=== PATIENT | female | born 1980 | race Caucasian/White ===

== ENCOUNTER 2023-04-09 13:21 | Emergency (ER) | payer BC, MEDICAID, SELFPAY ==
[2023-04-09 13:36] VITALS: BP 142/80; PULSE 72; RESP 16; TEMP 36.8; O2SAT 99; BMI 26.1
[2023-04-09 13:52] VITALS: BP 143/59; PULSE 66; RESP 25; O2SAT 98
--- NOTE | 2023-04-09 13:52 | CTR_ITS ---
PROCEDURE INFORMATION: Exam: CT Abdomen And Pelvis With Contrast Exam date and time: 04/09/2023 2:23 PM Age: 43 years old Clinical indication: Abdominal pain; Localized; Right lower quadrant (rlq); Prior surgery; Surgery date: 6+ months; Surgery type: Gb, c sect x 3; Additional info: Periumbilical and rlq pain TECHNIQUE: Imaging protocol: Computed tomography of the abdomen and pelvis with contrast. Axial, coronal and sagittal reformatted images were created and reviewed. Radiation optimization: All CT scans at this facility use at least one of these dose optimization techniques: automated exposure control; mA and/or kV adjustment per patient size (includes targeted exams where dose is matched to clinical indication); or iterative reconstruction. Contrast material: OMNI 350; Contrast volume: 100 ml; Contrast route: INTRAVENOUS (IV); REPORTING DATA: Count of CT and Cardiac NM exams in prior 12 months: This patient has received 0 known CTs and 0 known cardiac nuclear medicine studies in the 12 months prior to the current study. COMPARISON: No relevant prior studies available. RADIATION DOSE METRICS: Total DLP (mGy-cm): 554.1 FINDINGS: Liver: Unremarkable. Gallbladder and bile ducts: Status post cholecystectomy. No biliary ductal dilatation. Pancreas: Unremarkable. Spleen: Unremarkable. Adrenal glands: 2.2 cm right adrenal myelolipoma. 3 mm low-density right renal lesion, too small to characterize. No radiodense calculi. No hydronephrosis. Kidneys and ureters: See Adrenal glands finding. Stomach and bowel: No bowel wall thickening. No obstruction. No pneumatosis. Appendix: Normal. Intraperitoneal space: No free fluid. No organized fluid collection. No free air. Vasculature: Unremarkable. No aneurysm. Lymph nodes: No pathologically enlarged lymph nodes. Urinary bladder: Unremarkable as visualized. Reproductive: Probable involuting right ovarian corpus luteal cyst. Bones/joints: No acute osseous abnormality. Osteopenia. Mild degenerative changes. Soft tissues: Tiny, fat containing umbilical hernia. CT/CT abdomen pelvis w con* [id number]: 1[address] No CT evidence of acute intra-abdominal or pelvic pathology. 2. Additional findings, as above. COMMENTS: Consistent with the [employer]'s Incidental Findings Committee white paper (J Am Anali Radiol 2018): Any incidental renal lesion less than 1 cm or classified as too small to characterize, or any incidental cystic renal lesion characterized as simple-appearing, is likely benign. No follow-up imaging is recommended for these lesions per consensus recommendations based on imaging criteria.
--- NOTE | 2023-04-09 13:53 | W.ED.ABDPA2 ---
Documented by User: Olivia Guzman PA-C 04/09/23 15:25 HPI - Abdominal Pain General: Chief Complaint: Abdominal Pain Stated Complaint: abd pain Time Seen by Provider: 04/09/23 13:41 Source: patient Mode of arrival: ambulatory Limitations: no limitations History of Present Illness: 43-year-old female presents the ER today for 4 days of abdominal pain and nausea. Patient reports when this began on this was periumbilical and shooting into the right upper quadrant. Patient reports it has continued to be around the umbilicus but now is radiating to the right lower quadrant. Patient reports nausea without vomiting. She reports decreased appetite. Patient reports normal bowel movements with no constipation or diarrhea. Patient reports normal urinary habits with no pain or increased frequency. Patient reports no blood in her stools or in urine. Patient denies any recent illness. Denies any recent sick contacts. Patient reports a history of a cholecystectomy. Patient still has her appendix and uterus. Denies any vaginal issues such as abnormal bleeding or discharge. Review of Systems General: Reports: 10 or more systems reviewed and unremarkable except in HPI and below Physical Exam Const: COMMON NORMALS: average body habitus, patient oriented x3, no limitations, healthy appearing, alert and well nourished; apparent distress (slightly uncomfortable) HENMT: COMMON NORMALS: normocephalic, atraumatic, external ears normal, Normal nasal mucous membranes and turbinates present and moist oral mucous membranes HEAD & SCALP: normocephalic and atraumatic NOSE: Normal nasal mucous membranes and turbinates present EXTERNAL EAR: Yes external ears normal Neck/C-Spine: COMMON NORMALS: full ROM and no lymphadenopathy Resp: COMMON NORMALS: normal respiratory effort, No retractions and clear to auscultation bilaterally AUSCULTATION: clear to auscultation bilaterally Cardio: COMMON NORMALS: regular rate, regular rhythm and No murmurs present (Cardio) RATE: regular rate RHYTHM: regular rhythm GI: COMMON NORMALS: Soft to palpation and No hepatosplenomegaly present INSPECTION: Yes normal to inspection AUSCULTATION: Yes normoactive bowel sounds PALPATION: Yes Soft to palpation, Yes Tenderness to palpation present (GI) (Periumbilical and right lower quadrant), Yes Guarding due to palpation present (GI), Yes No hepatosplenomegaly present, No Palpable mass present and No Rebound tenderness present : COMMON NORMALS: Yes no CVA tenderness BLADDER/KIDNEY EXAM: Yes no CVA tenderness Back/Pelvis: COMMON NORMALS: no CVA tenderness Extremity: COMMON NORMALS: normal to inspection, full ROM and no pedal edema Neuro: COMMON NORMALS: patient oriented x3 SENSORIUM/ORIENTATION: Yes alert Psych: COMMON NORMALS: mental status grossly normal, Normal thought process present and cooperative THOUGHT PROCESS: Normal thought process present Skin: COMMON NORMALS: no rashes or lesions noted and no wounds GENERAL SKIN EXAM: no rashes or lesions noted Course ED course: Patient presents to the ER with 4 days of periumbilical and right lower quadrant abdominal pain. This is intermittent however patient reports constant discomfort. Reports nausea without vomiting. No diarrhea or constipation reported. No recent sick contacts or recent illnesses. Patient has a history of cholecystectomy. We will get lab work, UA, and CT to rule out appendicitis versus other acute abdomen. Patient will be given fluids and Zofran for nausea. Vital Signs: Vital signs: Vital Signs Temperature 98.3 F 04/09/23 15:32 Pulse Rate 65 04/09/23 15:32 Respiratory Rate 21 H 04/09/23 15:32 Blood Pressure 108/60 04/09/23 15:32 Pulse Oximetry 98 04/09/23 15:32 Oxygen Delivery Me thod Room Air 04/09/23 15:24 MDM - Abdominal Pain Medical Decision Making Lab work is mostly unremarkable. UA does indicate probable UTI with blood and leukocytes noted. Patient's symptoms could be related to the UTI. Patient was also noted to have an ovarian cyst on the right side on CT of the abdomen. No acute abdomen is noted on the CT. Discussed findings with patient. We will treat with Cipro for the UTI. Also recommended anti-inflammatories to help with possible pain associated with an ovarian cyst. If pain persist I recommend she follow-up with PCP to discuss treatment plan. Push fluids. Return to the ER with any new or worsening symptoms. Patient verbalized understanding and was in agreement with the treatment plan. Lab Data 04/09/23 14:06 04/09/23 14:06 Labs/Radiology: Radiology Impressions Abdomen/Pelvis CT 04/09/23 13:[address]: 1[address] No [address] evidence of acute intra-abdominal or pelvic pathology. 2. Additional findings, as above. COMMENTS: Consistent with the [employer]'s Incidental Findings Committee white paper (J Am Anali Radiol 2018): Any incidental renal lesion less than 1 cm or classified as too small to characterize, or any incidental cystic renal lesion characterized as simple-appearing, is likely benign. No follow-up imaging is recommended for these lesions per consensus recommendations based on imaging criteria. Laboratory Results WBC 9.4 10^3/uL (4.0-10.0) 04/09/23 14:06 RBC 4.80 10^6/uL (4.1-5.3) 04/09/23 14:06 Hgb 15.2 g/dL (11.5-15.3) 04/09/23 14:06 Hct 46.0 % (37.0-47.0) 04/09/23 14:06 MCV 95.8 fl (81-99) 04/09/23 14:06 MCH 31.7 pg (28.0-34.0) 04/09/23 14:06 MCHC 33.0 g/dL (30.0-36.0) 04/09/23 14:06 RDW 13.0 % (12.1-15.1) 04/09/23 14:06 Plt Count 360 10^3/cmm (130-400) 04/09/23 14:06 MPV 10.2 fL (7.4-10.4) 04/09/23 14:06 Neut % (Auto) 55.4 % 04/09/23 14:06 Lymph % (Auto) 29.7 % 04/09/23 14:06 [place] % (Auto) 11.0 % 04/09/23 14:06 Eos % (Auto) 2.7 % 04/09/23 14:06 Baso % (Auto) 0.8 % 04/09/23 14:06 Neut # (Auto) 5.22 10^3/uL (1.8-7.7) 04/09/23 14:06 Lymph # (Auto) 2.8 10^3/uL (0.8-4.8) 04/09/23 14:06 [place] # (Auto) 1.0 10^3/uL (0.2-0.9) H 04/09/23 14:06 Eos # (Auto) 0.3 10^3/uL (0.0-0.8) 04/09/23 14:06 Baso # (Auto) 0.1 10^3/uL (0.0-0.1) 04/09/23 14:06 Nucleated RBC % (auto) 0 % 04/09/23 14:06 Nucleated RBCs # 0.0 /100WBC 04/09/23 14:06 Sodium 135 mmol/L (136-145) L 04/09/23 14:06 Potassium 4.0 mmol/L (3.5-5.1) 04/09/23 14:06 Chloride 103 mmol/L (98-107) 04/09/23 14:06 Carbon Dioxide 21 mmol/L (22-29) L 04/09/23 14:06 Anion Gap 15.0 (5-19) 04/09/23 14:06 BUN 8 mg/dL (6-20) 04/09/23 14:06 Creatinine 0.7 mg/dL (0.5-0.9) 04/09/23 14:06 GFR Calculation 90.9 mL/min (90-130) 04/09/23 14:06 Glucose 117 mg/dL (65-115) H 04/09/23 14:06 Calculated Osmolality 279 mOsm/kg (285-295) L 04/09/23 14:06 Calcium 9.5 mg/dL (8.5-10.5) 04/09/23 14:06 Total Bilirubin 0.4 mg/dL (0.15-1.2) 04/09/23 14:06 AST 13 U/L (0-32) 04/09/23 14:06 ALT 18 U/L (0-33) 04/09/23 14:06 Alkaline Phosphatase 64 U/L (35-105) 04/09/23 14:06 Total Protein 7.8 g/dL (6.6-8.7) 04/09/23 14:06 Albumin 4.6 g/dL (3.5-5.2) 04/09/23 14:06 Globulin 3.2 g/dL (1.3-4.6) 04/09/23 14:06 Lipase 19 U/L (13-60) 04/09/23 14:06 Urine Color Yellow (Yellow) 04/09/23 14:24 Urine Appearance Clear (CLEAR) 04/09/23 14:24 Urine pH 6 (5-7) 04/09/23 14:24 Ur Specific [place] 1.010 (1.005-1.030) 04/09/23 14:24 Urine Protein Neg (Negative) 04/09/23 14:24 Urine Glucose (UA) Norm (Normal) 04/09/23 14:24 Urine Ketones Negative (Negative) 04/09/23 14:24 Urine Blood 2+ (Negative) H 04/09/23 14:24 Urine Nitrate Negative (Negative) 04/09/23 14:24 Urine Bilirubin Neg (Negative) 04/09/23 14:24 Urine Urobilinogen Norm mg/dL (Negative) 04/09/23 14:24 Ur Leukocyte Esterase 2+ (Negative) H 04/09/23 14:24 Urine RBC 5-10 /hpf (0-2) H 04/09/23 14:24 Urine WBC 10-15 /hpf (0-5) H 04/09/23 14:24 Ur Squamous Epith Cells 10-15 /hpf (0-5) H 04/09/23 14:24 Amorphous Sediment Not Reportable 04/09/23 14:24 Urine Bacteria 1+ /hpf (NONE) H 04/09/23 14:24 Urine Mucus Trace /hpf 04/09/23 14:24 Critical Care Time Critical Care Time: Critical Care Time: No Discharge Plan Discharge Patient Disposition: Home Clinical Impression: Cyst of right ovary UTI (urinary tract infection) Qualifiers: Urinary tract infection type: acute cystitis Hematuria presence: with hematuria Qualified Code(s): N30.01 - Acute cystitis with hematuria Condition: Stable Prescriptions: New Cipro 250 mg tablet 250 mg PO BID 5 Days Qty: 10 0RF No Action glimepiride 4 mg tablet 4 mg PO QPM lisinopril 20 mg tablet 20 mg PO QPM Probiotic 10 billion cell Capsule 10,000 mmu cells PO DAILY Discharge Orders: Discharge ED (Routine); Ordered 04/09/23 Ordered By: Olivia Guzman Referrals: Sania Perdomo DO [Primary Care Provider] - Discharge Diet: Usual diet Discharge Activity: Resume usual activity Patient Instructions: Opioid Safety, Pain Management Activity Restrictions/Additional Instructions: Take Cipro as prescribed. Recommend an anti-inflammatory for pain as this may be caused by the ovarian cyst. Push fluids. Follow-up with PCP in 3 to 5 days if no improvement. Return to the ER with any new or worsening symptoms. Coding Level of Care Code ED Rabbler for Chg Fwd Documented by User: Harpreet Melendez DO 04/10/23 05:47 HPI - Abdominal Pain General: Chief Complaint: Abdominal Pain Stated Complaint: abd pain Time Seen by Provider: 04/09/23 13:41 Course Vital Signs: Vital signs: Vital Signs Temperature 98.3 F 04/09/23 15:32 Pulse Rate 65 04/09/23 15:32 Respiratory Rate 21 H 04/09/23 15:32 Blood Pressure 108/60 04/09/23 15:32 Pulse Oximetry 98 04/09/23 15:32 Oxygen Delivery Me thod Room Air 04/09/23 15:24 MDM - Abdominal Pain Medical Decision Making Lab work is mostly unremarkable. UA does indicate probable UTI with blood and leukocytes noted. Patient's symptoms could be related to the UTI. Patient was also noted to have an ovarian cyst on the right side on CT of the abdomen. No acute abdomen is noted on the CT. Discussed findings with patient. We will treat with Cipro for the UTI. Also recommended anti-inflammatories to help with possible pain associated with an ovarian cyst. If pain persist I recommend she follow-up with PCP to discuss treatment plan. Push fluids. Return to the ER with any new or worsening symptoms. Patient verbalized understanding and was in agreement with the treatment plan. Chart reviewed and patient discussed with midlevel. Agree with assessment and plan. Lab Data 04/09/23 14:06 04/09/23 14:06 Labs/Radiology: Radiology Impressions Abdomen/Pelvis CT 04/09/23 13:[address] IMPRESSION: 1[address] No CT evidence of acute intra-abdominal or pelvic pathology. 2. Additional findings, as above. COMMENTS: Consistent with the [employer]'s Incidental Findings Committee white paper (J Am Anali Radiol 2018): Any incidental renal lesion less than 1 cm or classified as too small to characterize, or any incidental cystic renal lesion characterized as simple-appearing, is likely benign. No follow-up imaging is recommended for these lesions per consensus recommendations based on imaging criteria. Laboratory Results WBC 9.4 10^3/uL (4.0-10.0) 04/09/23 14:06 RBC 4.80 10^6/uL (4.1-5.3) 04/09/23 14:06 Hgb 15.2 g/dL (11.5-15.3) 04/09/23 14:06 Hct 46.0 % (37.0-47.0) 04/09/23 14:06 MCV 95.8 fl (81-99) 04/09/23 14:06 MCH 31.7 pg (28.0-34.0) 04/09/23 14:06 MCHC 33.0 g/dL (30.0-36.0) 04/09/23 14:06 RDW 13.0 % (12.1-15.1) 04/09/23 14:06 Plt Count 360 10^3/cmm (130-400) 04/09/23 14:06 MPV 10.2 fL (7.4-10.4) 04/09/23 14:06 Neut % (Auto) 55.4 % 04/09/23 14:06 Lymph % (Auto) 29.7 % 04/09/23 14:06 [place] % (Auto) 11.0 % 04/09/23 14:06 Eos % (Auto) 2.7 % 04/09/23 14:06 Baso % (Auto) 0.8 % 04/09/23 14:06 Neut # (Auto) 5.22 10^3/uL (1.8-7.7) 04/09/23 14:06 Lymph # (Auto) 2.8 10^3/uL (0.8-4.8) 04/09/23 14:06 [place] # (Auto) 1.0 10^3/uL (0.2-0.9) H 04/09/23 14:06 Eos # (Auto) 0.3 10^3/uL (0.0-0.8) 04/09/23 14:06 Baso # (Auto) 0.1 10^3/uL (0.0-0.1) 04/09/23 14:06 Nucleated RBC % (auto) 0 % 04/09/23 14:06 Nucleated RBCs # 0.0 /100WBC 04/09/23 14:06 Sodium 135 mmol/L (136-145) L 04/09/23 14:06 Potassium 4.0 mmol/L (3.5-5.1) 04/09/23 14:06 Chloride 103 mmol/L (98-107) 04/09/23 14:06 Carbon Dioxide 21 mmol/L (22-29) L 04/09/23 14:06 Anion Gap 15.0 (5-19) 04/09/23 14:06 BUN 8 mg/dL (6-20) 04/09/23 14:06 Creatinine 0.7 mg/dL (0.5-0.9) 04/09/23 14:06 GFR Calculation 90.9 mL/min (90-130) 04/09/23 14:06 Glucose 117 mg/dL (65-115) H 04/09/23 14:06 Calculated Osmolality 279 mOsm/kg (285-295) L 04/09/23 14:06 Calcium 9.5 mg/dL (8.5-10.5) 04/09/23 14:06 Total Bilirubin 0.4 mg/dL (0.15-1.2) 04/09/23 14:06 AST 13 U/L (0-32) 04/09/23 14:06 ALT 18 U/L (0-33) 04/09/23 14:06 Alkaline Phosphatase 64 U/L (35-105) 04/09/23 14:06 Total Protein 7.8 g/dL (6.6-8.7) 04/09/23 14:06 Albumin 4.6 g/dL (3.5-5.2) 04/09/23 14:06 Globulin 3.2 g/dL (1.3-4.6) 04/09/23 14:06 Lipase 19 U/L (13-60) 04/09/23 14:06 Urine Color Yellow (Yellow) 04/09/23 14:24 Urine Appearance Clear (CLEAR) 04/09/23 14:24 Urine pH 6 (5-7) 04/09/23 14:24 Ur Specific [place] 1.010 (1.005-1.030) 04/09/23 14:24 Urine Protein Neg (Negative) 04/09/23 14:24 Urine Glucose (UA) Norm (Normal) 04/09/23 14:24 Urine Ketones Negative (Negative) 04/09/23 14:24 Urine Blood 2+ (Negative) H 04/09/23 14:24 Urine Nitrate Negative (Negative) 04/09/23 14:24 Urine Bilirubin Neg (Negative) 04/09/23 14:24 Urine Urobilinogen Norm mg/dL (Negative) 04/09/23 14:24 Ur Leukocyte Esterase 2+ (Negative) H 04/09/23 14:24 Urine RBC 5-10 /hpf (0-2) H 04/09/23 14:24 Urine WBC 10-15 /hpf (0-5) H 04/09/23 14:24 Ur Squamous Epith Cells 10-15 /hpf (0-5) H 04/09/23 14:24 Amorphous Sediment Not Reportable 04/09/23 14:24 Urine Bacteria 1+ /hpf (NONE) H 04/09/23 14:24 Urine Mucus Trace /hpf 04/09/23 14:24 Discharge Plan Discharge Patient Disposition: Home Clinical Impression: Cyst of right ovary UTI (urinary tract infection) Qualifiers: Urinary tract infection type: acute cystitis Hematuria presence: with hematuria Qualified Code(s): N30.01 - Acute cystitis with hematuria Condition: Stable Prescriptions: New Cipro 250 mg tablet 250 mg PO BID 5 Days Qty: 10 0RF No Action glimepiride 4 mg tablet 4 mg PO QPM lisinopril 20 mg tablet 20 mg PO QPM Probiotic 10 billion cell Capsule 10,000 mmu cells PO DAILY Discharge Orders: Discharge ED (Routine); Ordered 04/09/23 Ordered By: Olivia Guzman Referrals: Sania Perdomo DO [Primary Care Provider] - Discharge Diet: Usual diet Discharge Activity: Resume usual activity Patient Instructions: Opioid Safety, Pain Management Activity Restrictions/Additional Instructions: Take Cipro as prescribed. Recommend an anti-inflammatory for pain as this may be caused by the ovarian cyst. Push fluids. Follow-up with PCP in 3 to 5 days if no improvement. Return to the ER with any new or worsening symptoms. Coding Level of Care Code ED Rabbler for Cynthia Felton
[2023-04-09 14:14] LABS: Basophils # 0.1 10^3/uL (0.0-0.1); Basophils % 0.8 %; Eosinophils # 0.3 10^3/uL (0.0-0.8); Eosinophils % 2.7 %; Hemoglobin 15.2 g/dL (11.5-15.3); Lymphocytes # 2.8 10^3/uL (0.8-4.8); Lymphocytes % 29.7 %; Mean Corpuscular Hemoglobin 31.7 pg (28.0-34.0); Mean Corpuscular Volume 95.8 fl (81-99); Mean Platelet Volume 10.2 fL (7.4-10.4); Neutrophils # 5.22 10^3/uL (1.8-7.7); Neutrophils % 55.4 %; Nucleated Red Blood Cells % 0 %; Platelet Count 360 10^3/cmm (130-400); White Blood Count 9.4 10^3/uL (4.0-10.0)
[2023-04-09] MEDS: iohexol 350 mg/mL 500 mL Btl (per mL) IV (14:23)
[2023-04-09] MEDS: sodium chloride 0.9% 1,000 ML 999 ML IV (14:36)
[2023-04-09] MEDS: ondansetron 2 mg/ML SDV 2 mL 4 MG IVP (14:40)
[2023-04-09 14:45] VITALS: BP 146/57; PULSE 61; RESP 22; O2SAT 96
[2023-04-09 14:47] LABS: Alanine Aminotransferase 18 U/L (0-33); Albumin Level 4.6 g/dL (3.5-5.2); Alkaline Phosphatase 64 U/L (35-105); Aspartate Amino Transferase 13 U/L (0-32); Blood Urea Nitrogen 8 mg/dL (6-20); Calcium 9.5 mg/dL (8.5-10.5); Carbon Dioxide 21 mmol/L (22-29); Chloride 103 mmol/L (98-107); Globulin 3.2 g/dL (1.3-4.6); Glomerular Filtration Rate 90.9 mL/min (90-130); Glucose 117 mg/dL (65-115); Lipase 19 U/L (13-60); Osmolality Calculated 279 mOsm/kg (285-295); Sodium 135 mmol/L (136-145); Total Bilirubin 0.4 mg/dL (0.15-1.2); Total Protein 7.8 g/dL (6.6-8.7)
[2023-04-09 15:04] LABS: Bilirubin Urine Neg (Negative); Blood Urine 2+ (Negative); Glucose Urine UA Norm (Normal); Ketones Urine Negative (Negative); Nitrate Urine Negative (Negative); Protein Urine Neg (Negative); Urine Appearance Clear (CLEAR); Urine Color Yellow (Yellow); Urobilinogen Urine Norm (Negative); pH Urine 6 (5-7)
[2023-04-09 15:05] LABS: Add Urine Culture? Yes; Add Urine Microscopic? YES; Bacteria Urine 1+ /hpf; Leukocyte Esterase Urine 2+ (Negative); Mucus Urine TRACE /hpf
[2023-04-09 15:24] VITALS: BP 108/60; PULSE 65; RESP 21; O2SAT 98
[2023-04-09 15:32] VITALS: BP 108/60; PULSE 65; RESP 21; TEMP 36.8; O2SAT 98
== END 2023-04-09 15:32 | disposition home or self-care (01) ==
PROVIDERS: Emergency Provider Physician Assistant; PCP Family Medicine
DX: N30.01 Acute cystitis with hematuria (principal); N83.201 Unspecified ovarian cyst, right side; Z79.84 Long term (current) use of oral hypoglycemic drugs
CPT/HCPCS: 74177; 80053; 81000; 81001; 83690; 85025; 87086; 96374; 99285; J2405; J7030; Q9967

== ENCOUNTER → 2023-08-21 14:00 | Outpatient (BNVA) | payer BC, MEDICAID, SELFPAY | PROVIDERS: PCP Family Medicine; Visit Provider Obstetrics & Gynecology | DX: Z12.4 Encounter for screening for malignant neoplasm of cervix (principal) | CPT/HCPCS: 87624 ==

== ENCOUNTER → 2023-09-06 08:19 | Outpatient (BNVA) | payer BC, MEDICAID, SELFPAY | PROVIDERS: PCP Family Medicine; Visit Provider Obstetrics & Gynecology | DX: Z01.818 Encounter for other preprocedural examination (principal); R10.2 Pelvic and perineal pain | CPT/HCPCS: 81025; 88305 ==

== ENCOUNTER 2023-10-26 07:09 | Outpatient (CLI) | payer BC, MEDICAID, SELFPAY ==
--- NOTE | 2023-10-26 07:35 | MM_ITS ---
WS: [id number] BILATERAL SCREENING DIGITAL TOMOSYNTHESIS MAMMOGRAM WITH CAD HISTORY: breast cancer screening COMPARISON: None available. Bilateral CC and MLO views with tomosynthesis and synthetic mammography submitted. Computer aided det ection analyzed. Breast composition: There are scattered areas of fibroglandular density. No suspicious masses, microc alcifications or architectural distortion. 5 mm lymph node is the posterior RIGHT chest wall. IMPRESSION: MM/[place] [id number] BI-RADS: 2-Benign FOLLOW UP: 1 Year Follow-up
== END 2023-10-26 07:10 | disposition home or self-care (01) ==
PROVIDERS: PCP Family Medicine; Visit Provider Family Medicine
DX: Z12.31 Encounter for screening mammogram for malignant neoplasm of breast (principal); R92.323 Mammographic fibroglandular density, bilateral breasts
CPT/HCPCS: 77063; 77067

== ENCOUNTER → 2023-12-18 08:18 | Outpatient (BNVA) | payer BC, MEDICAID, SELFPAY | PROVIDERS: PCP Family Medicine; Visit Provider Family Medicine | DX: E11.9 Type 2 diabetes mellitus without complications (principal) | CPT/HCPCS: 80053; 80061; 83036 ==

== ENCOUNTER 2024-02-15 08:30 | Inpatient (IN) | payer BC, MEDICAID, SELFPAY ==
[2024-02-15] VITALS (19 sets, daily range): BP systolic 108–139; BP diastolic 58–81; PULSE 56–86; RESP 10–21; TEMP 36.1–36.9; O2SAT 90–100; BMI 25.4
--- NOTE | 2024-02-15 01:36 | P.HP_ITS ---
Same Day Surgery H&P Indication for Procedure/HPI DATE OF PROCEDURE: February 15, 2024 CHIEF COMPLAINT/INDICATIONFOR SURGICAL PROCEDURE: chronic pelvic pain PREOP DIAGNOSIS: chronic pelvic pain PLANNED PROCEDURE: Operation Date: 02/15/24 07:00 Proposed Procedures p Total Abdominal Hysterectomy 04108, R10.2(Not Applicable) - Dane Dewitt MD s Salpingo Oophorectomy (Open)(Bilateral) - Dane Dewitt MD 43 y.o. h/o BTL h/o chronic pelvic pain now scheduled for total abdominal hysterectomy, bilateral salpingo-oophorectomy Medications/Allergies* Home Medications Medication Instructions Recorded Confirmed Type Lactobacillus acidophilus 10 10,000 mmu cells PO DAILY 04/09/23 02/14/24 History billion cell capsule (Probiotic) lisinopril 20 mg tablet 20 mg PO QPM 04/09/23 02/14/24 History dapagliflozin propanediol 10 mg 10 mg PO DAILY 08/21/23 02/14/24 History tablet (Farxiga) glimepiride 4 mg tablet 8 mg PO QPM 10/23/23 02/14/24 History Allergies/Adverse Reactions Allergy/AdvReac Type Severity Reaction Status Date / Time prednisone Allergy ALGY-Hives Verified 01/10/24 14:10 Pertinent History/Comorbid Conditions* Medical History (Updated 10/23/23 @ 08:38 by Alison Arredondo MD) Diabetes Surgical History (Updated 10/23/23 @ 08:58 by Alison Arredondo MD) History of surgery on left wrist History of tonsillectomy History of 3 sections History of cholecystectomy Family History (Updated 08/21/23 @ 10:23 by Carrol Sibley) Denies family history of Colon cancer Ovarian cancer Diabetes Heart disease Hyperlipidemia Breast cancer Hypertension Uterine cancer Thyroid disease Stroke Social History Smoking and tobacco/nicotine status: former use of tobacco/nicotine Quit status (tobacco/nicotine): has quit using Year quit tobacco: 2022 Alcohol intake: never Substance/Drug Use: never Lives independently: Yes Household members: children Number of children: 3 Current occupational status: employed 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
[2024-02-15 06:35] LABS: OR HCG Qualitative Urine Negative (Negative)
[2024-02-15 06:47] LABS: Glucose Point of Care 166 mg/dL (70-110)
[2024-02-15] MEDS: sodium chloride 0.9% 1,000 ML 30 ML IV (06:47)
--- NOTE | 2024-02-15 06:51 | W.PM.OPSUD ---
Surgery/Procedure H&P Update DATE OF PROCEDURE: February 15, 2024 DATE H&P PERFORMED: 02/15/24 H&P UPDATE INFORMATION: I have reviewed H&P completed within last 30 days, I have examined patient prior to procedure and No changes to prior documentation PREOP DIAGNOSIS: chronic pelvic pain PLANNED PROCEDURE: Operation Date: 02/15/24 07:00 Proposed Procedures p Total Abdominal Hysterectomy 51204, R10.2(Not Applicable) - Dane Dewitt MD s Salpingo Oophorectomy (Open)(Bilateral) - Dane Dewitt MD
--- NOTE | 2024-02-15 06:53 | P.ANESASSM_ITS ---
Pre-Anesthetic Assessment Height/Weight: Height 1.68 m Weight 71.668 kg Temp Pulse Resp BP Pulse Ox O2 Del Method 97.9 F 61 17 137/81 99 Room Air 02/15/24 06:11 02/15/24 06:11 02/15/24 06:11 02/15/24 06:11 02/15/24 06:11 02/15/24 06:12 Preop Diagnosis: chronic pelvic pain Operation Date: 02/15/24 07:00 Proposed Procedures p Total Abdominal Hysterectomy 41935, R10.2(Not Applicable) - Dane Dewitt MD s Salpingo Oophorectomy (Open)(Bilateral) - Dane Dewitt MD Familial anesthetic complications: None Was Beta Linnea taken within 24 hours: N/A Was Clonidine taken within 24 hours: N/A Last intake: Intake Last Liquid Date 02/14/24 Last Liquid Time 22:30 Last Solid Date 02/14/24 Last Solid Time 18:00 Social No alcohol and No tobacco Exam alert, oriented x 3, clear to auscultation bilaterally and regular rate & rhythm Airway Mallampati: Class II Dentition: full CV/HEM Hypertension Metabolic Diabetes Mellitus, Hyperlipidemia and Morbid Obesity Anesthetic Plan ASA status: 2 Anesthesia: General Risk of > 500 ml blood loss (7ml/kg in children): No Medications/Allergies Home Medications Medication Instructions Recorded Confirmed Last Taken Type Lactobacillus acidophilus 10 10,000 mmu cells PO DAILY 04/09/23 02/14/24 02/13/24 History billion cell capsule (Probiotic) lisinopril 20 mg tablet 20 mg PO QPM 04/09/23 02/14/24 02/13/24 History dapagliflozin propanediol 10 mg 10 mg PO DAILY 08/21/23 02/14/24 02/14/24 History tablet (Farxiga) glimepiride 4 mg tablet 8 mg PO QPM 10/23/23 02/14/24 02/13/24 History atorvastatin 40 mg tablet 40 mg PO DAILY #90 tabs 12/19/23 02/14/24 02/13/24 Rx dulaglutide 1.5 mg/0.5 mL 1.5 mg SUBCUT Q7D 02/15/24 02/14/24 02/06/24 History subcutaneous pen injector (Trulicity) Allergies Allergy/AdvReac Type Severity Reaction Status Date / Time prednisone Allergy ALGY-Hives Verified 01/10/24 14:10 Current Medications Generic Name Dose Route Start Last Admin Trade Name Freq PRN Reason Stop Dose Admin Sodium Chloride 1,000 mls @ 30 mls/hr 02/15/24 06:00 02/15/24 06:47 Sodium Chloride 0.9% IV 02/16/24 05:59 30 mls/hr .Q24H CRUZ Administration PFSH Anesthesia Medical History Diabetes Surgical History History of surgery on left wrist History of tonsillectomy History of 3 sections History of cholecystectomy Family History Denies family history of Colon cancer Ovarian cancer Diabetes Heart disease Hyperlipidemia Breast cancer Hypertension Uterine cancer Thyroid disease Stroke Social History Smoking and tobacco/nicotine status: former use of tobacco/nicotine Quit status (tobacco/nicotine): has quit using Year quit tobacco: 2022 Alcohol intake: never Substance/Drug Use: never Lives independently: Yes Household members: children Number of children: 3 Current occupational status: employed 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
[2024-02-15] MEDS: ceFAZolin 2,000 MG in sodium chloride 0.9% (plus) 50 ML 100 MG IV (07:02)
[2024-02-15] MEDS: BUPivacaine 0.5% INJ 30 mL 24 ML INJECTION (07:43)
[2024-02-15] MEDS: BUPivacaine liposome 13.3 mg/mL SDV 10 mL 266 MG INJECTION (07:43)
[2024-02-15] MEDS: fentaNYL 50 mcg/mL INJ 2mL IVP (08:49)
--- NOTE | 2024-02-15 09:05 | PM.OP ---
Operative Report Date of procedure: February 15, 2024 Pre-op diagnosis: chronic pelvic pain Post-op diagnosis: same Post-op findings: Normal uterus, tubes, and ovaries Normal and intact bladder Procedure done: Total abdominal hysterectomy Bilateral salpingo-oophorectomy Implants: none Specimens removed/disposition: uterus, tubes, and ovaries Surgeon: Yordy May MD Wireless Development Manager: Dane Dewitt MD Anesthesia: General Estimated blood loss (mL): 10 Complications: none Findings: Normal uterus, tubes, and ovaries Normal and intact bladder Brief History: 43 y.o. with h/o chronic pelvic pain Procedure: Informed consent obtained. The patient was taken to the operating room and placed supine on the table. General endotracheal anesthesia was induced. The abdomen was prepped and draped in the usual sterile fashion. A walker catheter was placed which drained clear urine. A pfannenstiel incision was made over an old scar and carried down through skin and subcutaneous tissue and fascia. The fascia was sharply incised. The rectus muscles were and the abdomen was entered bluntly in the midline. The pelvic contents were visualized and examined. An Eliseo-O retractor was placed. The bowels were packed out of the way. The Ligasure device was used throughout for vessel sealing and cutting. The hysterectomy was begun by dividing and ligating the round ligaments bilaterally. The ovarian suspensory ligaments were divided and skeletonized bilaterally lateral to the ovaries and tubes. The ovaries and tubes were thus removed. The vesicouterine peritoneal fold was incised in a transverse curvilinear fashion and sharply dissected downward mobilizing the bladder off the lower uterine segment. The uterine vessels were skeletonized and bilaterally divided and ligated. The procedure was carried down on both sides of the uterus until the cardinal uterosacral ligament was reached. The cervix was then incised. The vaginal cuff was identified and the mucosa was from the cervix. In this fashion, the uterus, ovaries, and tubes were removed leaving the vaginal cuff. The vaginal cuff was identified and the mucosa was sewn with O-Vicryl. The pelvis was inspected and irrigated. There was no bleeding. The abdominal packs were removed as was the retractor. The fascia was then closed with a continuous stitch of O-Vicryl. The subcutaneous tissue was irrigated and inspected for hemostasis. Exparel 40 cc was given subcutaneously for postoperative pain relief. The skin was then reapproximated using Insorb absorbable subcuticular skin trish. The patient was then placed supine, extubated, and taken to the recovery room. Postoperative condition: stable EBL: 10 cc Complications: none Sponge, needle, instruments counts were correct x two.
[2024-02-15] MEDS: dextrose 5%-lactated ringers 1,000 ML 125 ML IV ×2 (09:57→17:38)
[2024-02-15] MEDS: ketorolac 30 mg/mL INJ IVP ×3 (09:58→21:14)
[2024-02-15] MEDS: HYDROcodone-acetaminophen 5-325 mg Tablet PO ×2 (09:58→16:34)
[2024-02-15] MEDS: morphine 4 mg/mL SDV 1 mL IVP (10:40)
[2024-02-15] MEDS: docusate sodium 100 mg Capsule PO (17:38)
[2024-02-16 00:08] VITALS: BP 118/71; PULSE 76; RESP 16; TEMP 36.9; O2SAT 95
[2024-02-16] MEDS: dextrose 5%-lactated ringers 1,000 ML 125 ML IV (01:51)
[2024-02-16] MEDS: ketorolac 30 mg/mL INJ IVP (03:19)
[2024-02-16 04:00] VITALS: BP 126/68; PULSE 57; RESP 15; TEMP 37.1; O2SAT 96
[2024-02-16 05:21] LABS: Hematocrit 34.4 % (36-47); Mean Corpuscular HGB Conc 33.1 g/dL (30-55); Mean Corpuscular Hemoglobin 31.9 pg (27-33); Mean Corpuscular Volume 96.4 fl (85-98); Mean Platelet Volume 10.9 fL (7.4-10.4); Platelet Count 302 10^3/cmm (157-399); Red Blood Count 3.57 10^6/uL (3.85-5.65); Red Cell Distribution Width 13.4 % (12.1-15.1); White Blood Count 10.96 10^3/uL (3.29-11.43)
[2024-02-16] MEDS: HYDROcodone-acetaminophen 5-325 mg Tablet PO (07:24)
[2024-02-16 07:46] VITALS: BP 127/68; PULSE 58; RESP 14; TEMP 36.4; O2SAT 96
--- NOTE | 2024-02-16 09:09 | PC.CHAP ---
Pastoral Care Encounter/Spiritual Assessment Type of Contact [] Declined top and seat cover fitter visit [] Patient/Family/Request visit [] Outpatient visit [] Follow-up visit [] Physician referral [] Code/Alert [x] Routine visit [] Staff referral [] Actively dying [] Patient sleeping [x] Family support [] [] Out of room [] Palliative care [] [] Receiving care in room [] Pre-surgical visit [] Trauma [] Long length of stay [] ICU visit [] Other: Relational/Emotional Strength [x] Patient feels connected with others/family/visitors/staff [] Distress [] Loneliness/isolation [] Abandonment Spirituality of Patient [x] Person of Luna [] Attends Nondenominational of their Luna [x] Believes in Prayer [] Reads Bible or Mormon materials [] There are Spiritual issues to be addressed 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 Interventions [x] Prayer [x] Active listening [x] Non-anxious presence [x] Spiritual/emotional support [] Crisis/trauma care [] Spiritual counseling [] Bereavement support [] Provided bereavement packet [] Provided Bible/devotional materials [] Provided toy/stuffed animal, coloring book to patient or family member [] Provided Communion [] Anointing/[place] [] Salvation [x Completed spiritual assessment [] Other: Impact on Illness or Injury [] Angry [] Fearful [] Anxious [] Often cries [] Exhaustion [] Unable to work [] Unable to attend congregation [] Unable to walk/stand [] Unable to read [] Unable to drive [] Unable to eat/drink [] Unable to sleep [] Unable to be with family [] Patient intubated [] Other: Summary Time spent with patient 10 min
--- NOTE | 2024-02-16 09:10 | ANE.PACU2 ---
Inpatient post-anesthesia follow up: Airway intact: Yes Vital signs: Temperature 97.8 F Pulse Rate 63 Respiratory Rate 16 Blood Pressure 127/68 Pulse Oximetry 97 Oxygen Delivery Me thod Room Air Oxygen Flow Rate Fraction of Inspir ed Oxygen Hydration adequate: Yes Nausea and vomiting: No Pain level: 1 Mental status: Baseline
[2024-02-16] MEDS: ibuprofen 800 mg tablet PO (09:50)
[2024-02-16] MEDS: docusate sodium 100 mg Capsule PO (09:50)
[2024-02-16 11:57] VITALS: PULSE 63; RESP 16; TEMP 36.6; O2SAT 97
--- NOTE | 2024-02-16 12:35 | P.PN_ITS ---
ANSWERING SERVICE OPERATOR Subjective 2 Subjective: Interval history: c/o mild abdominal pain, relieved with pain medications eating, voiding, ambulating well no bleeding / discharge Vitals/I&O/Wt Last Vital Signs Temp 97.8 F 02/16/24 14:35 Pulse 63 02/16/24 14:35 Resp 16 02/16/24 14:35 BP 127/68 02/16/24 07:46 Pulse Ox 97 02/16/24 14:35 O2 Del Method Room Air 02/16/24 11:57 02/16/24 02/16/24 02/16/24 06:59 14:59 22:59 Intake Total 1480 / 4696.917 1600 / 1600 Output Total 300 / 1445 Balance 1180 / 3251.917 1600 / 1600 Weight last 48 hrs Weight 158 lb Weight 158 lb Weight 158 lb Physical Exam 2 Narrative: Comfortable, in no distress Awake, alert Afebrile, VS normal Lungs: clear Cor: RRR Abd: soft, nondistended, nontender wound clean and dry Ext: normal Urinary Catheter Management: Murguia: Cath Placed During This Visit: yes, but has since been removed by the nurse Reason for Continuing Indwelling Catheter: Decision to DC Catheter Urinary Catheter Date of Insertion: 02/15/24 Urinary Catheter Time of Insertion: 07:15 Date Urinary Catheter Removed: 02/15/24 Time Urinary Catheter Discontinued: 20:00 Data 02/16/24 04:56 A&P Assessment and plan (1) S/P hysterectomy with oophorectomy: s/p total abdominal hysterectomy, bilateral salpingo-oophorectomy POD #1 Doing well Plan discharge to home Call / return if fever, chills, abdominal pain, bleeding f/u in one week Attestations 2 Medical Necessity Statement*: patient s/p hysterectomy, plan to discharge to home today Coding Level of Care Code Acute Code for Chg Fwd Diagnoses S/P hysterectomy with oophorectomy Z90.710; Z90.721 Time Spent (min) 20
--- NOTE | 2024-02-16 12:40 | PM.OBGYDC ---
Discharge Providers COTTON CANDY MAKER Date of Admission: 02/15/24 08:30 Date of Discharge: 02/16/24 Attending Provider at Admission: Dane Dewitt MD Attending Provider at Discharge: Dane Dewitt MD Consults: none Primary COTTON CANDY MAKER: Dane Dewitt MD Primary Care Provider: Alison Arredondo MD Diagnoses at Discharge Discharge Diagnosis (1) S/P hysterectomy with oophorectomy: Details from hospital stay: patient underwent total abdominal hysterectomy, bilateral salpingo-oophorectomy without any complications patient did well postoperatively and was discharged to home on POD #1 Status: Acute Reason for Visit Reason for Visit: R110.2 Brief History: 43 y.o. with h/o chronic pelvic pain scheduled for total abdominal hysterectomy, bilateral salpingo-oophorectomy Hospital Course Hospital Course patient underwent total abdominal hysterectomy, bilateral salpingo-oophorectomy without any complications patient did well postoperatively and was discharged to home on POD #1 Physical Exam Narrative: Comfortable, in no distress Awake, alert Afebrile, VS normal Lungs: clear Cor: RRR Abd: soft, nondistended, nontender wound clean and dry Ext: normal Urinary Catheter Management: Murguia: Cath Placed During This Visit: yes, but has since been removed by the nurse Reason for Continuing Indwelling Catheter: Decision to DC Catheter Urinary Catheter Date of Insertion: 02/15/24 Urinary Catheter Time of Insertion: 07:15 Date Urinary Catheter Removed: 02/15/24 Time Urinary Catheter Discontinued: 20:00 History History History 3 Term 3 0 Miscarriages/Ectopic 0 Living Children 3 Discharge Data Studies Completed and Pending Pending at discharge Category Date Time Status Pathology: Surgical [PTH] Routine Pth 02/15/24 07:57 Received Laboratory Results WBC 10.96 10^3/uL (3.29-11.43) 02/16/24 04:56 RBC 3.57 10^6/uL (3.85-5.65) L 02/16/24 04:56 Hgb 11.40 g/dL (11.27-16.99) 02/16/24 04:56 Hct 34.4 % (36-47) L 02/16/24 04:56 MCV 96.4 fl (85-98) 02/16/24 04:56 MCH 31.9 pg (27-33) 02/16/24 04:56 MCHC 33.1 g/dL (30-55) 02/16/24 04:56 RDW 13.4 % (12.1-15.1) 02/16/24 04:56 Plt Count 302 10^3/cmm (157-399) 02/16/24 04:56 MPV 10.9 fL (7.4-10.4) H 02/16/24 04:56 POC Glucose 166 mg/dL (70-110) H 02/15/24 06:41 Urine HCG, Qual Negative (Negative) 02/15/24 06:34 Blood Type A Negative 02/15/24 06:40 Rho(D) Type Rh negative 02/15/24 06:40 Antibody Screen Negative 02/15/24 06:40 Procedures Performed total abdominal hysterectomy and bilateral salpingo-oophorectomy Vitals Last Vital Signs Temp 97.8 F 02/16/24 14:35 Pulse 63 02/16/24 14:35 Resp 16 02/16/24 14:35 BP 127/68 02/16/24 07:46 Pulse Ox 97 02/16/24 14:35 O2 Del Method Room Air 02/16/24 11:57 Results Labs OB ([facility]): Blood Type A Negative 02/15/24 Antibody Screen Negative 02/15/24 Hct 34.4 % (36-47) L 02/16/24 Hgb 11.40 g/dL (11.27-16.99) 02/16/24 Rho(D) Type Rh negative 02/15/24 Plt Count 302 10^3/cmm (157-399) 02/16/24 Hemoglobin A1c 7.0 % (4.0-6.0) H 12/18/23 HCG, Qual Negative (Negative) 09/06/23 Micro Urine Specimen 04/09/23 Pap Smear Interpret See note A 08/21/23 Discharge Plan Discharge Patient Disposition: Home Condition: Stable Prescriptions: New Percocet 10-325 mg tablet 1 tab PO BID PRN (Reason: pain) Qty: 20 0RF Continued lisinopril 20 mg tablet 20 mg PO QPM glimepiride 4 mg tablet 8 mg PO QPM Farxiga 10 mg tablet 10 mg PO DAILY Hold Instructions: Doctor's Order atorvastatin 40 mg tablet 40 mg PO DAILY Qty: 90 0RF Probiotic 10 billion cell Capsule 10,000 mmu cells PO DAILY Trulicity 1.5 mg/0.5 mL pen injector 1.5 mg SUBCUT Q7D Discharge Orders: Discharge Order (Routine); Ordered 02/16/24 Ordered By: Dane Dewitt Referrals: Dane Dewitt MD [Physician] - 02/21/24 10:00 am Discharge Diet: Usual diet Discharge Activity: Increase activity as tolerated Patient Instructions: Oxycodone/Acetaminophen (By mouth), Salpingo-Oophorectomy (DC), Hysterectomy (DC), Opioid Safety Activity Restrictions/Additional Instructions: Do not lift objects heavier than 10 pounds for 6 weeks. Avoid strenuous activity for 2 weeks. Do not strain during bowel movements. High-fiber foods and extra liquids can help you prevent constipation. Do no have sex, use tampons, retana douche for up to 8 weeks. No hot tubs or pools, or tub baths for 6 weeks Discharge Attestations COTTON CANDY MAKER Time Spent in Discharge Care*: less than 30 min Coding Level of Care Code Acute Code for Chg Fwd Diagnoses S/P hysterectomy with oophorectomy Z90.710; Z90.721 Time Spent (min) 20
[2024-02-16 14:35] VITALS: PULSE 63; RESP 16; TEMP 36.6; O2SAT 97
== END 2024-02-16 14:36 | disposition home or self-care (01) | DRG 983 ==
LOC: MEDSURG 09:49
PROVIDERS: Anesthesiology; Admitting Provider Obstetrics & Gynecology; PCP Family Medicine; Visit Provider Obstetrics & Gynecology
PROC: 0UT90ZZ Resection of Uterus, Open Approach (ICD-10-PCS; CPT 58150; principal; 2024-02-15 07:00)
PROC: 0UT90ZZ Resection of Uterus, Open Approach (ICD-10-PCS; CPT 58720; 2024-02-15 07:00)
DX: G89.29 Other chronic pain (principal); R10.2 Pelvic and perineal pain
CPT/HCPCS: 36415; 36416; 51702; 81025; 82962; 85027; 86850; 86900; 88307; C9290; J0131; J0690; J1170; J1200; J1885; J2250; J2270; J2371; J2405; J2704; J2710; J3010; J3490; J7030; J7121

== ENCOUNTER → 2024-03-18 09:43 | Outpatient (BNVA) | payer BC, MEDICAID, SELFPAY | PROVIDERS: PCP Family Medicine; Visit Provider Family Medicine | DX: E11.9 Type 2 diabetes mellitus without complications (principal) | CPT/HCPCS: 80061; 83036 ==

== ENCOUNTER → 2024-06-19 09:04 | Outpatient (BNVA) | payer BC, MEDICAID, SELFPAY | PROVIDERS: PCP Family Medicine; Visit Provider Family Medicine | DX: E11.9 Type 2 diabetes mellitus without complications (principal) | CPT/HCPCS: 80048; 80061; 83036 ==

== ENCOUNTER → 2024-07-11 08:07 | Outpatient (BNVA) | payer BC, MEDICAID, SELFPAY | PROVIDERS: PCP Family Medicine | DX: M25.531 Pain in right wrist (principal) | CPT/HCPCS: 73110 ==

== ENCOUNTER → 2024-07-12 08:56 | Outpatient (BNVA) | payer BC, MEDICAID, SELFPAY | PROVIDERS: PCP Family Medicine; Visit Provider Family Medicine | DX: M25.531 Pain in right wrist (principal) | CPT/HCPCS: 84550 ==

== ENCOUNTER → 2024-10-04 08:07 | Outpatient (BNVA) | payer BC, MEDICAID, SELFPAY | PROVIDERS: PCP Family Medicine; Visit Provider Family Medicine | DX: E11.9 Type 2 diabetes mellitus without complications (principal); I10 Essential (primary) hypertension; N95.1 Menopausal and female climacteric states | CPT/HCPCS: 83036; 84443 ==

== ENCOUNTER → 2024-11-19 14:25 | Outpatient (BNVA) | payer BC, MEDICAID, SELFPAY | PROVIDERS: PCP Family Medicine; Visit Provider Family Medicine | DX: R25.2 Cramp and spasm (principal); R25.3 Fasciculation; D64.9 Anemia, unspecified | CPT/HCPCS: 80053; 82728; 83540; 83735; 85025 ==

== ENCOUNTER → 2025-03-24 08:53 | Outpatient (BNVA) | payer BC, MEDICAID, SELFPAY | PROVIDERS: PCP Family Medicine; Visit Provider Family Medicine | DX: E11.9 Type 2 diabetes mellitus without complications (principal); R71.8 Other abnormality of red blood cells; R25.3 Fasciculation | CPT/HCPCS: 80053; 80061; 83036; 83735; 84443; 85025 ==

== ENCOUNTER → 2025-06-18 10:25 | Outpatient (BNVA) | payer BC, MEDICAID, SELFPAY | PROVIDERS: PCP Family Medicine; Visit Provider Registered Nurse Neonatal Intensive Care | DX: R39.9 Unspecified symptoms and signs involving the genitourinary system (principal); R30.0 Dysuria | CPT/HCPCS: 81000; 87086 ==

== ENCOUNTER → 2025-06-23 08:33 | Outpatient (BNVA) | payer BC, MEDICAID, SELFPAY | PROVIDERS: PCP Family Medicine; Visit Provider Family Medicine | DX: E11.9 Type 2 diabetes mellitus without complications (principal) | CPT/HCPCS: 80048; 80061; 83036 ==

== ENCOUNTER 2025-06-29 13:35 | Emergency (ER) | payer BC, MEDICAID, SELFPAY ==
--- OUTSIDE RECORDS SUMMARY | 2025-06-29 13:39 | XMS_ITS | Clinical Summary ---
Author Organization [facility] Address [address] [place] [address] Care Team Providers Care Nail Feeder Name Role Phone Robinson Brasher Primary Care Provider [phone] Allergies Active Allergy Reactions Criticality Noted Date Comments Prednisone Other (See Comments) High 11/08/2010 Tachycardia Medications lisinopriL (PRINIVIL) 20 mg tabletIndicatio ns:Type 2 diabetes mellitus without complication, with long-term current use of insulin,HTN (hypertension), benign Take 1 Tablet (20 mg) by mouth daily. 90 Tablet 4 3 Active dapagliflozin propanediol (Farxiga) 10 mg TabletIndicatio ns:Type 2 diabetes mellitus without complication, with long-term current use of insulin Take 1 Tablet (10 mg) by mouth daily in the morning. 100 Tablet 3 3 Active Blood-Glucose Meter KitIndications: Type 2 diabetes mellitus without complication, with long-term current use of insulin Check blood sugar before each meal and at bedtime. 1 Kit 1 3 Active lancets Check blood sugar before each meal and at bedtime. 200 Each 5 3 Active blood sugar diagnostic (Blood Glucose Test) StripIndication s:Type 2 diabetes mellitus without complication, with long-term current use of insulin Check blood sugar before each meal and at bedtime. 100 Strip 5 3 Active Additional Information Patient not taking.Reported on 09/21/2023 dulaglutide (TRULICITY) 0.75 mg/0.5 mL injectionIndica tions:Type 2 diabetes mellitus without complication, with long-term current use of insulin Inject 0.5 mL (0.75 mg) by subcutaneous injection every 7 days. 6 mL 3 4 Active glimepiride (AMARYL) 4 mg tabletIndicatio ns:Type 2 diabetes mellitus without complication, with long-term current use of insulin Take 2 Tablets (8 mg) by mouth daily with breakfast. 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 Gestational diabetes 12/15/2009 Immunizations Immunization Administration Dates Next Due Hepatitis B Vaccine 01/20/1997,10/11/1996,1995 Influenza Vaccine Split 3+ Yrs IM 08/04/2011 Family History Medical History Relation Name Comments Hypertension Maternal Grandfather Migraines Maternal Grandmother Migraines Mother Relation Name Status Comments Father Unknown Maternal Grandfather Maternal Grandmother Mother Alive Social History Tobacco Use Types Packs/Day Years Used Date Smoking Tobacco: Former Cigarettes Smokeless Tobacco: Never Tobacco Cessation:Counseling Given: No Alcohol Use Standard Drinks/Week Comments No 0 (1 standard drink = 0.6 oz pur e alcohol) Comments No Sex and Gender Information Value Date Recorded Sex Assigned at Female 06/28/2023 11:10 AM CDT Legal Sex Female 4:52 PM INTEL ANALYST Gender Identity Female 06/28/2023 11:10 AM CDT Sexual Orientation Straight 06/28/2023 11 :10 AM CDT Last Filed Vital Signs Vital Sign Reading Time Taken Comments Blood Pressure 130/74 09/21/2023 9:33 AM INTEL ANALYST Pulse 90 09/21/2023 9:33 AM INTEL ANALYST Temperature 36.6 C (97.8 F) 09/21/2023 9:33 AM INTEL ANALYST Respiratory Rate 16 09/21/2023 9:33 AM INTEL ANALYST Oxygen Saturation 99% 09/21/2023 9:33 AM INTEL ANALYST Inhaled Oxygen Concentration - - Weight 76.8 kg (169 lb 6.4 oz) 09/21/2023 9:33 A M INTEL ANALYST Height 165.1 cm (5' 5 ) 09/21/2023 9:33 AM INTEL ANALYST Body Mass Index 28.19 09/21/2023 9:33 AM INTEL ANALYST Plan of Treatment Health Maintenance Due Date Last Done Comments DTAP/TDAP/TD VACCINES (1 - Tdap) 1998 Preventative Visit-Managed Medicaid 1998 HPV/Cotest (21-29) 2000 CERVICAL CANCER SCREENING 2009 HPV/Cotest (30-65) 2009 PAP SMEAR 2009 BREAST CANCER SCREENING 2019 DIABETES ANNUAL FOOT EXAM 02/07/2024 02/06/2023, DIABETES MICROALBUMIN ANNUAL SCREEN 02/07/2024 02/06/2023, 12/04/2020 LDL CHOLESTEROL ANNUAL 02/07/2024 , 2022, 12/04/2020, Additional history exists COLORECTAL SCREENING 2024 Colorectal Cancer Screening 2024 FIT-DNA Q 3 years 2024 FIT/FOBT Q 1 year 2024 Flex Sig/CT Colonography Q 5 years 2024 DIABETES HBA1C Q 6 MONTHS 03/21/20242023, 06/27/2023, 02/06/2023, Additional history exists DIABETES ANNUAL RETINAL EXAM 07/13/2024 07/13/2023, 01/15/2021 INFLUENZA VACCINE (#1) 2025 08/04/2011 HEPATITIS B VACCINES Completed 01/20/1997, 10/11/1996, 08/30/1996 HPV VACCINES Aged Out No longer eligi ble based on patient's age to complete this topic Procedures Procedure Name Priority Date/Time Associated Diagnosis Comments HEMOGLOBIN A1C Routine 09/21/2023 10:11 AM INTEL ANALYST Pre-operative clearance HM DIABETES EYE EXAM Routine 07/13/2023 10:42 AM CDT MICROALBUMIN/CREATIN INE RATIO, RANDOM UR Routine 02/06/2023 8:45 AM CDT Type 2 diabetes mellitus without complication, with long-term current use of insulin (CMS/HCC) HTN (hypertension), benign LIPID PANEL Routine 02/06/2023 8:45 AM CDT Type 2 diabetes mellitus without complication, with long-term current use of insulin (CMS/HCC) HTN (hypertension), benign from Last 3 Months or Most Recently Relevant to Health Maintenance Results * (ABNORMAL) HEMOGLOBIN A1C (09/21/2023 10:11 AM INTEL ANALYST) HEMOGLOBIN A1C 8.6(H) <5.7 % of total Hgb [facility] Comment: For someone without known diabetes, a hemoglobin A1c value of 6.5% or greater indicates that they may have diabetes and this should be confirmed with a follow-up test. For someone with known diabetes, a value <7% indicates that their diabetes is well controlled and a value greater than or equal to 7% indicates suboptimal control. A1c targets should be individualized based on duration of diabetes, age, comorbid conditions, and other considerations. Currently, no consensus exists regarding use of hemoglobin A1c for diagnosis of diabetes for children. ESTIMATED AVERAGE GLUCOSE (MG/DL) 200 mg/dL [facility] ESTIMATED AVERAGE GLUCOSE (MMOL/L) 11.1 mmol/L [facility] Comment: Test Performed at: [email or web address] [address] [place] [address] Michael Ledesma MD Blood 09/21/2023 10:1 1 AM INTEL ANALYST 09/22/2023 6:11 AM INTEL ANALYST Fabby Moyer SANITARY LANDFILL SUPERVISOR CHEMISTRY ORDERABLES Final Re sult [facility] [phone] [facility] [address] [address] [facility] [place] [address] * DIABETES EYE EXAM (07/13/2023 10:42 AM CDT) us Abstract Provider HEALTH MAINTENANCE Final Resul t * MICROALBUMIN/CREATININE RATIO, RANDOM UR (02/06/2023 8:45 AM CDT) Creatinine, Urine 53 20 - 275 mg/dL [facility] MICROALBUMIN, URINE 0.6 See Note: mg/dL [facility] Comment: Reference Range: Reference Range Not established MICROALBUMIN/CREAT RATIO, UR 11 <30 mcg/mg creat [facility] Comment: The ADA defines abnormalities in albumin excretion as follows: Albuminuria Category Result (mcg/mg creatinine) Normal to Mildly increased <30 Moderately increased 30-299 Severely increased > OR = 300 The ADA recommends that at least two of three specimens collected within a 3-6 month period be abnormal before considering a patient to be within a diagnostic category. Test Performed at: [facility] [address] [place] [address] Michael Ledesma MD Urine URINE SPECIMEN OBTAINED BY CLEAN CATCH PROCEDURE / Unknown 02/06/2023 8:45 AM CDT 02/07/2023 5:19 AM CDT Ana Gray NP URINE ORDERABLES Final Result [facility] [phone] [facility] [address] [place] [address] * (ABNORMAL) LIPID PANEL (02/06/2023 8:45 AM CDT) CHOLESTEROL 151 <200 mg/dL [facility] HDL 39(L) > OR = 50 mg/dL [facility] TRIGLYCERIDE 97 <150 mg/dL [facility] LDL CALCULATED 93 mg/dL (calc) [facility] Comment: Reference range: <100 Desirable range <100 mg/dL for primary prevention; <70 mg/dL for patients with CHD or diabetic patients with > or = 2 CHD risk factors. LDL-C is now calculated using the Lucien-Yuniel calculation, which is a validated novel method providing better accuracy than the Friedewald equation in the estimation of LDL-C. Lucien MARVIN et al. JULIO. 2013;310(19): 5875-0793 (http://education.EPIS.Decision Lens/faq/CFV206) CHOL/HDL RATIO 3.9 <5.0 (calc) [facility] TOTAL NON-HDL CHOL(LDL+VLDL) 112 <130 mg/dL (calc) [facility] Comment: For patients with diabetes plus 1 major ASCVD risk factor, treating to a non-HDL-C goal of <100 mg/dL (LDL-C of <70 mg/dL) is considered a therapeutic option. Test Performed at: [facility] [address] [id number] Michael Ledesma MD Blood 02/06/2023 8:45 AM CDT 02/07/2023 5:11 AM CDT Ana Gray AIR BRAKE ADJUSTER CHEMISTRY ORDERABLES Final Re sult [facility] [phone] [facility] [address] [phone] from Last 3 Months or Most Recently Relevant to Health Maintenance Insurance [facility] MEDICAID Care Teams Nail Feeder Relationship Specialty Start Date End Date Robinson Brasher DO [address] [place] [address] PCP - General Family Practice 05/16/23
[2025-06-29 13:40] VITALS: BP 115/73; PULSE 84; TEMP 36.7; O2SAT 100
--- NOTE | 2025-06-29 14:13 | ED_ITS ---
HPI - Recheck/Abnormal Lab/Rx 2 General: Chief Complaint: Recheck/Abnormal Lab/Rx Stated Complaint: high bloodsugar Time Seen by Provider: 06/29/25 13:49 History of Present Illness: 45-year-old female presents emergency ro om complaining of elevated blood sugars. Have been elevated the last several days. Patient is a type II diabetic. She is on multiple oral medications at home blood sugar has been running the 400s at times up over the 500 range. Patient recently was treated for bladder infection but is not been having any symptoms recently had a scope pleated a course of oral antibiotics. Related Data Previous Rx's ?Medication ?Instructions ?Recorded atorvastatin 40 mg tablet 40 mg PO DAILY #30 tabs 03/12 dulaglutide 4.5 mg/0.5 mL 4.5 mg (0.5 mL) SUBCUT Q7D # 2 mL 06/23/25 subcutaneous pen injector estradiol 2 mg tablet See Rx Instructions .Route 1 .COMPLEX #30 tabs glimepiride 4 mg tablet 4 mg PO BID #60 tabs 5 lisinopril 20 mg tablet See Rx Instructions .Route 1 .COMPLEX #30 tabs paroxetine HCl 40 mg tablet 40 mg PO DAILY #30 tabs flash glucose scanning reader #1 ea 06/30/25 (FreeStyle Kaylan 2 [place]) flash glucose sensor (FreeStyle #2 ea 06/30/25 Kaylan 2 Sensor kit) insulin glargine 100 unit/mL (3 10 unit (0.1 mL) SUBCU T QAM #3 mL 06/30/25 mL) subcutaneous pen (Lantus Solostar U-100 Insulin) pen needle, diabetic 29 gauge x #100 ea 06/30/25/ (Ultra-Thin II Insulin Pen Rutledge) Allergies Allergy/AdvReac Type Severity Reaction Status Date / Time prednisone Allergy ALGY-Hives Verified 06/30/25 08:50 Review of Systems 2 Const: Denies: fever(s) or chills Card: Denies: chest pain Resp: Denies: dyspnea GI: Denies: abdominal pain : Denies: dysuria, urinary frequency or urinary urgency Musc: Denies: neck pain or back pain Skin/Breast: Denies: rash PFSH ED 2 PFSH: Medical History Depression Diabetes Surgical History S/P hysterectomy with oophorectomy History of surgery on left wrist History of tonsillectomy History of 3 sections History of cholecystectomy Family History Denies family history of Colon cancer Ovarian cancer Diabetes Heart disease Hyperlipidemia Breast cancer Hypertension Uterine cancer Thyroid disease Stroke Social History Smoking and tobacco/nicotine status: current every day tobacco/nicotine user Physical Exam 2 Const: COMMON NORMALS: no acute distress GENERAL APPEARANCE: cooperative and comfortable ORIENTATION/CONSCIOUSNESS: Yes awake, Yes oriented to person, Yes oriented to place and Yes oriented to time HENMT: COMMON NORMALS: normocephalic, atraumatic and hearing grossly normal bilaterally HEAD & SCALP: normocephalic and atraumatic Resp: COMMON NORMALS: normal respiratory effort, No retractions, No use of accessory muscles and clear to auscultation bilaterally AUSCULTATION: clear to auscultation bilaterally Cardio: COMMON NORMALS: regular rate, regular rhythm and No murmurs present (Cardio) RATE: regular rate RHYTHM: regular rhythm GI: COMMON NORMALS: Soft to palpation and No hepatosplenomegaly present A USCULTATION: Yes normoactive bowel sounds PALPATION: Yes Soft to palpation, No Tenderness to palpation present (GI), No Guarding due to palpation present (GI) and Yes No hepatosplenomegaly present Extremity: COMMON NORMALS: normal to inspection, capillary refill normal, no clubbing, cyanosis or edema, no calf tenderness and no pedal edema Neuro: SENSORIUM/ORIENTATION: Yes oriented to person, Yes oriented to place and Yes oriented to time Skin: COMMON NORMALS: no rashes or lesions noted GENERAL SKIN EXAM: no rashes or lesions noted Course 2 Vital Signs: Vital signs: Vital Signs Temperature 98.1 F 06/29/25 13:40 Pulse Rate 65 06/29/25 16:15 Blood Pressure 119/67 06/29/25 16:15 Pulse Oximetry 98 06/29/25 16:15 Oxygen Delivery Me thod Room Air 06/29/25 13:40 MDM - Recheck/Abnormal Lab/Rx Medical Decision Making Glucose improved significantly with insulin and IV fluids. Reviewed with patient. She is not having ketones at this time no signs of infection not in DKA. Her anion gap was normal. I encouraged her to follow-up with her primary care doctor to look at other options for blood sugar control. Medical Records I reviewed the patient's medical records. Lab Data I reviewed the patient's lab results. 06/29/25 14:00 06/29/25 14:00 Laboratory Results WBC 9.76 10^3/uL (3.29-11.43) 06/29/25 14:00 RBC 4.42 10^6/uL (3.85-5.65) 06/29/25 14:00 Hgb 14.20 g/dL (11.27-16.99) 06/29/25 14:00 Hct 42.7 % (36-47) 06/29/25 14:00 MCV 96.6 fl (85-98) 06/29/25 14:00 MCH 32.1 pg (27-33) 06/29/25 14:00 MCHC 33.3 g/dL (30-55) 06/29/25 14:00 RDW 12.9 % (12.1-15.1) 06/29/25 14:00 Plt Count 394 10^3/cmm (157-399) 06/29/25 14:00 MPV 10.6 fL (7.4-10.4) H 06/29/25 14:00 Neut % (Auto) 68.9 % 06/29/25 14:00 Lymph % (Auto) 18.3 % 06/29/25 14:00 Stewart % (Auto) 9.3 % 06/29/25 14:00 Eos % (Auto) 2.6 % 06/29/25 14:00 Baso % (Auto) 0.8 % 06/29/25 14:00 Neut # (Auto) 6.72 10^3/uL (1.8-7.7) 06/29/25 14:00 Lymph # (Auto) 1.8 10^3/uL (0.8-4.8) 06/29/25 14:00 Stewart # (Auto) 0.9 10^3/uL (0.2-0.9) 06/29/25 14:00 Eos # (Auto) 0.3 10^3/uL (0.0-0.8) 06/29/25 14:00 Baso # (Auto) 0.1 10^3/uL (0.0-0.1) 06/29/25 14:00 Nucleated RBC % (auto) 0 % 06/29/25 14:00 Nucleated RBCs # 0.0 /100WBC 06/29/25 14:00 Sodium 136 mmol/L (136-145) 06/29/25 14:00 Potassium 4.4 mmol/L (3.5-5.1) 06/29/25 14:00 Chloride 100 mmol/L (98-107) 06/29/25 14:00 Carbon Dioxide 23 mmol/L (22-29) 06/29/25 14:00 Anion Gap 17.4 (5-19) 06/29/25 14:00 BUN 15 mg/dL (6-20) 06/29/25 14:00 Creatinine 0.9 mg/dL (0.5-0.9) 06/29/25 14:00 GFR Calculation 67.4 mL/min (90-130) L 06/29/25 14:00 Glucose 577 mg/dL (65-115) H* 06/29/25 14:00 POC Glucose 132 mg/dL (70-110) H 06/29/25 16:11 Calculated Osmolality 309 mOsm/kg (285-295) H 06/29/25 14:00 Calcium 8.7 mg/dL (8.5-10.5) 06/29/25 14:00 Total Bilirubin 0.3 mg/dL (0.15-1.2) 06/29/25 14:00 AST 25 U/L (0-32) 06/29/25 14:00 ALT 33 U/L (0-33) 06/29/25 14:00 Alkaline Phosphatase 96 U/L (35-105) 06/29/25 14:00 Total Protein 7.2 g/dL (6.6-8.7) 06/29/25 14:00 Albumin 4.3 g/dL (3.5-5.2) 06/29/25 14:00 Globulin 2.9 g/dL (1.3-4.6) 06/29/25 14:00 Urine Color Yellow (Yellow) 06/29/25 14:40 Urine Appearance Clear (CLEAR) 06/29/25 14:40 Urine pH 6 (5-7) 06/29/25 14:40 Ur Specific [place] 1.010 (1.005-1.030) 06/29/25 14:40 Urine Protein Neg (Negative) 06/29/25 14:40 Urine Glucose (UA) 4+ (Normal) H 06/29/25 14:40 Urine Ketones Negative (Negative) 06/29/25 14:40 Urine Blood Neg (Negative) 06/29/25 14:40 Urine Nitrate Negative (Negative) 06/29/25 14:40 Urine Bilirubin Neg (Negative) 06/29/25 14:40 Urine Urobilinogen Neg mg/dL (Negative) 06/29/25 14:40 Ur Leukocyte Esterase Negative (Negative) 06/29/25 14:40 Amorphous Sediment Not Reportable 06/29/25 14:40 Serum Ketones Negative (Negative) 06/29/25 14:00 No radiology studies performed this visit Discharge Plan Discharge Patient Disposition: Home Clinical Impression: Hyperglycemia Condition: Stable Prescriptions: No Action paroxetine HCl 40 mg tablet 40 mg PO DAILY Qty: 30 2RF atorvastatin 40 mg tablet 40 mg PO DAILY Qty: 30 2RF estradiol 2 mg tablet See Rx Instructions .ROUTE .COMPLEX Qty: 30 2RF Dose Instruction: Take 1 tablet by mouth once daily Rx Instructions: Take 1 tablet by mouth once daily glimepiride 4 mg tablet 4 mg PO BID Qty: 60 2RF lisinopril 20 mg tablet See Rx Instructions .ROUTE .COMPLEX Qty: 30 2RF Dose Instruction: Take 1 tablet by mouth in the evening Rx Instructions: Take 1 tablet by mouth in the evening dulaglutide 4.5 mg/0.5 mL pen injector 4.5 mg SUBCUT Q7D Qty: 2 5RF insulin glargine [Lantus Solostar U-100 Insulin] 100 unit/mL (3 mL) insulin pen 10 unit SUBCUT QAM Qty: 3 0RF (DME) FreeStyle Kaylan 2 Sensor Kit See Rx Instructions .MEDSUPPLY Qty: 2 11RF Rx Instructions: Change every 14 days; Use as directed to check blood sugar (DME) FreeStyle Kaylan 2 [place] Misc See Rx Instructions .MEDSUPPLY Qty: 1 0RF Rx Instructions: Use as directed to check blood sugar (DME) pen needle, diabetic [Ultra-Thin II Ins Pen [place]ledge] 29 gauge x 1/2 needle See Rx Instructions .ROUTE Qty: 100 1RF Rx Instructions: As directed Discharge Orders: Discharge ED (Routine); Ordered 06/29/25 Ordered By: Harpreet Melendez Referrals: Alison Arredondo MD [Primary Care Provider, Family Practice] Discharge Diet: Diabetic Discharge Activity: Resume usual activity Patient Instructions: Opioid Safety, Pain Management, Patient Portal & [place] Instructions Activity Restrictions/Additional Instructions: [facility]. It is very important that you follow up as instructed or that you return to the Emergency Department should you have concerns or if your condition changes or worsens in any way. Emergency department visits are focused on emergent conditions, in some cases you may require further evaluation on an outpatient basis. You were seen in the emergency room with elevated blood sugars responded well to IV fluids and insulin. You should follow-up with your doctor this coming week and review your blood sugar control for other opportunities to achieve tighter control your blood sugar. Monitor blood sugar closely at home. (Please note that included in your discharge packet is information concerning opioid safety and pain management. This information is given to all patients were discharged from the ER regardless of their discharge diagnosis or the medicines they usually take or are prescribed.) Print Language: Citizen Of [place] Coding Level of Care Code ED Paramedic Instructor for Cynthia Felton
[2025-06-29 14:17] LABS: Hematocrit 42.7 % (36-47); Hemoglobin 14.20 g/dL (11.27-16.99); Mean Corpuscular HGB Conc 33.3 g/dL (30-55); Mean Corpuscular Hemoglobin 32.1 pg (27-33); Mean Corpuscular Volume 96.6 fl (85-98); Nucleated Red Blood Cells % 0 %; Platelet Count 394 10^3/cmm (157-399); Red Blood Count 4.42 10^6/uL (3.85-5.65); White Blood Count 9.76 10^3/uL (3.29-11.43)
[2025-06-29 14:27] LABS: Ketone (Acetest) Serum Negative (Negative)
[2025-06-29 14:39] LABS: Alanine Aminotransferase 33 U/L (0-33); Albumin Level 4.3 g/dL (3.5-5.2); Alkaline Phosphatase 96 U/L (35-105); Anion Gap 17.4 (5-19); Aspartate Amino Transferase 25 U/L (0-32); Blood Urea Nitrogen 15 mg/dL (6-20); Calcium 8.7 mg/dL (8.5-10.5); Carbon Dioxide 23 mmol/L (22-29); Chloride 100 mmol/L (98-107); Creatinine Clr Calc Pharmacy 74.7440; Globulin 2.9 g/dL (1.3-4.6); Osmolality Calculated 309 mOsm/kg (285-295); Potassium 4.4 mmol/L (3.5-5.1); Sodium 136 mmol/L (136-145); Total Protein 7.2 g/dL (6.6-8.7)
[2025-06-29 14:40] LABS: Glucose 577 mg/dL (65-115)
[2025-06-29 14:50] LABS: Add Urine Microscopic? NO
[2025-06-29 14:54] LABS: Glucose Urine UA 4+ (Normal); Nitrate Urine Negative (Negative); Specific Gravity, Urine 1.010 (1.005-1.030)
[2025-06-29 14:55] LABS: Charge for UA Resulting for Rev
[2025-06-29 15:00] VITALS: BP 125/79; PULSE 71; O2SAT 98
[2025-06-29] MEDS: insulin regular-human 100 units/1 mL 10 UNIT IVP (15:09)
[2025-06-29 16:15] VITALS: BP 119/67; PULSE 65; O2SAT 98
== END 2025-06-29 16:15 | disposition home or self-care (01) ==
PROVIDERS: Emergency Provider Family Medicine; PCP Family Medicine
DX: E11.65 Type 2 diabetes mellitus with hyperglycemia (principal); Z72.0 Tobacco use; Z79.4 Long term (current) use of insulin
CPT/HCPCS: 36416; 80053; 81003; 82009; 82962; 85025; 96361; 96374; 99284; J1815; J7030

== ENCOUNTER 2025-07-21 13:32 | Outpatient (CLI) | payer BC, MEDICAID, SELFPAY ==
--- NOTE | 2025-07-21 13:38 | MM_ITS ---
WS: [id number] BILATERAL 3D TOMOSYNTHESIS DIGITAL SCREENING MAMMOGRAPHY WITH CAD CLINICAL INFORMATION: SCREENING HISTORY: Screening mammogram. No current complaints. COMPARISON: 2023 TECHNIQUE: Bilateral CC and MLO views. FINDINGS: Scattered fibroglandular densities bilaterally. No suspicious focal mass, asymmetry, calcifications, or architectural distortion. No evidence of malignancy. Benign calcification RIGHT breast MM/MM scr BI tomosynthesis [id number] IMPRESSION: DENSITY: There are scattered areas of fibroglandular density. BI-RADS: 2 - Benign. FOLLOW UP: 1 Year Follow-up Recommend return to annual screening mammography.
== END 2025-07-21 13:33 | disposition home or self-care (01) ==
LOC: RAD 13:32
PROVIDERS: PCP Family Medicine; Visit Provider Family Medicine
DX: Z12.31 Encounter for screening mammogram for malignant neoplasm of breast (principal); R92.323 Mammographic fibroglandular density, bilateral breasts; R92.1 Mammographic calcification found on diagnostic imaging of breast
CPT/HCPCS: 77063; 77067

== ENCOUNTER → 2025-08-12 08:27 | Outpatient (BNVA) | payer BC, MEDICAID, SELFPAY | PROVIDERS: PCP Family Medicine; Visit Provider Family Medicine | DX: E11.9 Type 2 diabetes mellitus without complications (principal) | CPT/HCPCS: 80053; 82533; 84681 ==